=== PATIENT | female | born 1950 | race Caucasian/White ===

== ENCOUNTER → 2017-09-07 | Outpatient (CLI) | payer OTHER, BC ==
--- NOTE | ~2017-09-07 | EKG ---
[address] [address] ELECTROCARDIOGRAM REPORT Name: SUSY SUAREZ Room #: REG [facility]#: [id number] Admission: 09/07/17 Attend Phys: Una Esquivel MD Discharge: Date of : 48 Report #: [id number] THIS REPORT FOR: //name// [facility] Test Date: 2017-09-07 Test Time: 13:16:35 Pat Name: SUSY SUAREZ Department: Room: Gender: F Water Sponger: ALIREZA : 1950 Requested By: Una Esquivel Order Number: [id number] MD: Edgardo Humphrey Measurements Intervals [place] Rate: 94 P: 77 DE: 147 QRS: 27 QRSD: 86 T: 59 QT: 346 QTc: 433 Interpretive Statements Sinus rhythm Poor R wave progression No previous ECG available for comparison Electronically Signed On 09-07-2017 15:06:31 CDT by Edgardo Humphrey [email or web address] <ELECTRONICALLY SIGNED> By: Edgardo Humphrey MD, FACC 09/07/17 1506 1316 1316 Edgardo Humphrey MD, FACC /EPI
== END ==
LOC: CV 13:07
DX: Z01.810 Encounter for preprocedural cardiovascular examination (principal)